=== PATIENT | female | born 1940 | race Caucasian/White ===

== ENCOUNTER 2017-11-12 15:01 | Inpatient (IN) | payer MEDICARE, BC ==
[2017-11-12] MEDS: BARIUM SULF 2% 450 ML BTL (BERRY SMOOTHIE) PO (15:00)
[2017-11-12 16:27] LABS: ADD MAN DIFF? NO
[2017-11-12 16:30] LABS: BASOPHIL # 0.1 10^3/ul (0.0-0.1); BASOPHILS % 0.4 % (0.0-2.0); EOSINOPHILS # 0.1 10^3/ul (0.0-0.5); EOSINOPHILS % 0.7 % (0.0-7.0); HEMATOCRIT 44.2 % (37.0-47.0); HEMOGLOBIN 14.5 g/dl (12.0-16.0); LYMPHOCYTES # 1.5 10^3/ul (0.8-2.9); LYMPHOCYTES % 12.5 % (15.0-51.0); MEAN CORPUSCULAR HEMOGLOBIN 28.3 pg (29.0-33.0); MEAN CORPUSCULAR HGB CONC 32.8 g/dl (32.0-37.0); MEAN CORPUSCULAR VOLUME 86.3 fl (82.0-101.0); MEAN PLATELET VOLUME 11.3 fl (7.4-10.4); MONOCYTE # 1.1 10^3/ul (0.3-0.9); MONOCYTES % 9.3 % (0.0-11.0); NEUTROPHIL # 9.3 10^3/ul (1.6-7.5); NEUTROPHILS % 76.7 % (39.0-77.0); PLATELET COUNT 344 10^3/UL (140-415); RED BLOOD COUNT 5.12 10^6/ul (4.20-5.40)
[2017-11-12 16:30] LABS: WHITE BLOOD COUNT 12.1 10^3/ul (4.8-10.8)
[2017-11-12 16:48] LABS: ALANINE AMINOTRANSFERASE 51 IU/L (13-69); ALBUMIN 4.7 g/dl (3.3-4.9); ALBUMIN/GLOBULIN RATIO 1.42; ALKALINE PHOSPHATASE 250 IU/L (42-121); AMYLASE 52 U/L (11-123); ANION GAP 20 (8-16); ASPARTATE AMINO TRANSFERASE 26 IU/L (15-46); BILIRUBIN,INDIRECT 0.3 mg/dl (0-1.1); BILIRUBIN,TOTAL 0.3 mg/dl (0.2-1.3); BLOOD UREA NITROGEN 22 mg/dl (7-20); CALCIUM 10.3 mg/dl (8.4-10.2); CARBON DIOXIDE 30 mmol/L (21-31); CHLORIDE 95 mmol/L (97-110); CREATININE 1.03 mg/dl (0.44-1.00); GLUCOSE 107 mg/dl (70-220); LIPASE 66 U/L (23-300); POTASSIUM 4.4 mmol/L (3.5-5.1); SODIUM 141 mmol/L (135-144)
[2017-11-12 16:50] LABS: INR 0.96; PARTIAL THROMBOPLASTIN TIME 36.7 Sec (25.0-35.0); PROTIME 12.9 Sec (11.9-14.9)
[2017-11-12 17:05] LABS: TROPONIN-I < 0.012 ng/ml (0.00-0.12)
[2017-11-12] MEDS ORDERED: oxyCODONE 5 MG TAB PO (17:30)
[2017-11-12] MEDS ORDERED: LORAZEPAM 2 MG INJ IV (17:30)
[2017-11-12] MEDS: METOCLOPRAMIDE 5 MG TAB PO (17:35)
[2017-11-12 17:43] LABS: ERYTHROCYTE SEDIMENTATION RATE 10 mm/Hr (0-30)
[2017-11-12] MEDS: LORAZEPAM 2 MG INJ IV (20:59)
[2017-11-12] MEDS: PANTOPRAZOLE 40 MG INJ IV (20:59)
[2017-11-12] MEDS: ONDANSETRON 4 MG INJ IV (21:00)
[2017-11-12] MEDS: DEXTROSE 5%-0.9% NACL 1,000 ML IV (21:16)
[2017-11-12] MEDS: PIPER-TAZO 3.375 GM IV (PMX) 100 ML IVPB (23:59)
[2017-11-13] MEDS: DEXTROSE 5%-0.9% NACL 1,000 ML IV ×3 (01:03→21:30)
[2017-11-13] MEDS: LORAZEPAM 2 MG INJ IV (03:26)
[2017-11-13] MEDS: ONDANSETRON 4 MG INJ IV ×3 (03:31→17:57)
[2017-11-13] MEDS: PIPER-TAZO 3.375 GM IV (PMX) 100 ML IVPB ×3 (05:34→17:57)
[2017-11-13] MEDS: PANTOPRAZOLE 40 MG INJ IV ×2 (05:34→17:56)
[2017-11-13] MEDS: LEVOTHYROXINE 100 MCG TAB PO (05:34)
[2017-11-13 05:46] LABS: ADD MAN DIFF? NO
[2017-11-13 05:47] LABS: BASOPHIL # 0.1 10^3/ul (0.0-0.1); BASOPHILS % 0.5 % (0.0-2.0); EOSINOPHILS # 0.3 10^3/ul (0.0-0.5); EOSINOPHILS % 2.7 % (0.0-7.0); LYMPHOCYTES # 1.5 10^3/ul (0.8-2.9); LYMPHOCYTES % 15.1 % (15.0-51.0); MEAN CORPUSCULAR HEMOGLOBIN 27.7 pg (29.0-33.0); MEAN CORPUSCULAR HGB CONC 32.6 g/dl (32.0-37.0); MEAN PLATELET VOLUME 10.6 fl (7.4-10.4); MONOCYTES % 10.2 % (0.0-11.0); NEUTROPHIL # 7.3 10^3/ul (1.6-7.5); NEUTROPHILS % 71.3 % (39.0-77.0); PLATELET COUNT 289 10^3/UL (140-415); RED BLOOD COUNT 5.06 10^6/ul (4.20-5.40); RED CELL DISTRIBUTION WIDTH 13.9 % (11.5-14.5)
[2017-11-13 05:47] LABS: WHITE BLOOD COUNT 10.2 10^3/ul (4.8-10.8)
[2017-11-13 06:20] LABS: ALANINE AMINOTRANSFERASE 47 IU/L (13-69); ALBUMIN 4.5 g/dl (3.3-4.9); ALKALINE PHOSPHATASE 228 IU/L (42-121); ANION GAP 17 (8-16); ASPARTATE AMINO TRANSFERASE 24 IU/L (15-46); BILIRUBIN,INDIRECT 0.3 mg/dl (0-1.1); BILIRUBIN,TOTAL 0.3 mg/dl (0.2-1.3); BLOOD UREA NITROGEN 18 mg/dl (7-20); CALCIUM 10.1 mg/dl (8.4-10.2); CARBON DIOXIDE 27 mmol/L (21-31); CHLORIDE 101 mmol/L (97-110); CREATININE 0.86 mg/dl (0.44-1.00); GLUCOSE 124 mg/dl (70-220); POTASSIUM 3.9 mmol/L (3.5-5.1); SODIUM 141 mmol/L (135-144); TOTAL PROTEIN 7.5 g/dl (6.1-8.1)
[2017-11-13 07:15] LABS: ADD UMIC NO; UR ASCORBIC ACID NEGATIVE (NEGATIVE); UR BILIRUBIN (Dip) NEGATIVE (NEGATIVE); UR BLOOD (Dip) NEGATIVE (NEGATIVE); UR CLARITY CLEAR (CLEAR); UR COLOR STRAW (YELLOW); UR GLUCOSE (Dip) NEGATIVE (NEGATIVE); UR KETONES (Dip) NEGATIVE (NEGATIVE); UR LEUKOCYTE ESTERASE (Dip) NEGATIVE Leu/ul (NEGATIVE); UR NITRITE (Dip) NEGATIVE (NEGATIVE); UR SPECIFIC GRAVITY (Dip) 1.004 (1.003-1.030); UR TOTAL PROTEIN (Dip) NEGATIVE (NEGATIVE); UR UROBILINOGEN (Dip) NEGATIVE (NEGATIVE)
[2017-11-13] MEDS ORDERED: ESCITALOPRAM 10 MG TAB PO (09:00)
[2017-11-13] MEDS: ESCITALOPRAM 10 MG TAB PO (09:01)
[2017-11-13] MEDS: METOPROLOL 50 MG TAB PO (09:02)
[2017-11-13] MEDS ORDERED: BARIUM SULF 2% 450 ML BTL (BERRY SMOOTHIE) PO (18:00)
[2017-11-13] MEDS: ENOXAPARIN 30 MG/0.3 ML SYG SC (18:53)
[2017-11-14] MEDS: PIPER-TAZO 3.375 GM IV (PMX) 100 ML IVPB ×4 (00:43→18:02)
[2017-11-14] MEDS: LORAZEPAM 2 MG INJ IV ×2 (01:59→21:29)
[2017-11-14] MEDS: DEXTROSE 5%-0.9% NACL 1,000 ML IV ×3 (03:11→18:03)
[2017-11-14 05:38] LABS: ALANINE AMINOTRANSFERASE 41 IU/L (13-69); ALBUMIN 3.5 g/dl (3.3-4.9); ALKALINE PHOSPHATASE 173 IU/L (42-121); ASPARTATE AMINO TRANSFERASE 21 IU/L (15-46); BILIRUBIN,INDIRECT 0.2 mg/dl (0-1.1); BILIRUBIN,TOTAL 0.2 mg/dl (0.2-1.3); TOTAL PROTEIN 6.3 g/dl (6.1-8.1)
[2017-11-14] MEDS: LEVOTHYROXINE 100 MCG TAB PO (05:56)
[2017-11-14] MEDS: PANTOPRAZOLE 40 MG INJ IV ×2 (05:56→18:03)
[2017-11-14] MEDS ORDERED: BARIUM SULF 2% 450 ML BTL (BERRY SMOOTHIE) PO (06:00)
[2017-11-14] MEDS: ENOXAPARIN 30 MG/0.3 ML SYG SC (09:03)
[2017-11-14] MEDS: ESCITALOPRAM 10 MG TAB PO (09:04)
[2017-11-14] MEDS: METOPROLOL 50 MG TAB PO (09:05)
[2017-11-14] MEDS: BARIUM SULFATE 0.1% 450 ML BTL (VOLUMEN) PO (11:12)
[2017-11-14] MEDS: SOD CHLORIDE 0.9% 100 ML (13:14)
[2017-11-14] MEDS: IODIXANOL LOCM 100 ML BTL (13:14)
[2017-11-14] MEDS: IODIXANOL LOCM 50 ML BTL (13:15)
[2017-11-15] MEDS: PIPER-TAZO 3.375 GM IV (PMX) 100 ML IVPB ×4 (00:57→18:12)
[2017-11-15] MEDS: DIPHENOXYLATE/ATROPINE TAB PO (04:10)
[2017-11-15] MEDS: LEVOTHYROXINE 100 MCG TAB PO (05:25)
[2017-11-15 05:39] LABS: ADD MAN DIFF? NO
[2017-11-15 05:43] LABS: WHITE BLOOD COUNT 7.9 10^3/ul (4.8-10.8)
[2017-11-15 05:43] LABS: BASOPHIL # 0.1 10^3/ul (0.0-0.1); BASOPHILS % 0.8 % (0.0-2.0); EOSINOPHILS # 0.7 10^3/ul (0.0-0.5); EOSINOPHILS % 8.7 % (0.0-7.0); HEMATOCRIT 36.1 % (37.0-47.0); HEMOGLOBIN 11.5 g/dl (12.0-16.0); LYMPHOCYTES # 1.2 10^3/ul (0.8-2.9); LYMPHOCYTES % 14.5 % (15.0-51.0); MEAN CORPUSCULAR HGB CONC 31.9 g/dl (32.0-37.0); MONOCYTE # 0.8 10^3/ul (0.3-0.9); MONOCYTES % 10.2 % (0.0-11.0); NEUTROPHIL # 5.2 10^3/ul (1.6-7.5); NEUTROPHILS % 65.3 % (39.0-77.0); PLATELET COUNT 247 10^3/UL (140-415)
[2017-11-15 06:03] LABS: ALANINE AMINOTRANSFERASE 31 IU/L (13-69); ALBUMIN 3.6 g/dl (3.3-4.9); ALKALINE PHOSPHATASE 139 IU/L (42-121); ANION GAP 15 (8-16); ASPARTATE AMINO TRANSFERASE 18 IU/L (15-46); BLOOD UREA NITROGEN 10 mg/dl (7-20); CARBON DIOXIDE 27 mmol/L (21-31); CHLORIDE 107 mmol/L (97-110); CREATININE 0.96 mg/dl (0.44-1.00); GLUCOSE 111 mg/dl (70-220); MAGNESIUM 1.8 mg/dl (1.7-2.5); PHOSPHORUS 3.3 mg/dl (2.5-4.9); POTASSIUM 4.3 mmol/L (3.5-5.1); SODIUM 145 mmol/L (135-144)
[2017-11-15 06:13] LABS: INR 1.15; PROTIME 14.9 Sec (11.9-14.9); PT RATIO 1.2
[2017-11-15 06:14] LABS: PARTIAL THROMBOPLASTIN TIME 33.9 Sec (25.0-35.0)
[2017-11-15] MEDS: DEXTROSE 5%-0.9% NACL 1,000 ML IV ×3 (06:15→21:16)
[2017-11-15] MEDS: PANTOPRAZOLE 40 MG INJ IV ×2 (06:17→18:12)
[2017-11-15] MEDS: ENOXAPARIN 30 MG/0.3 ML SYG SC (08:15)
[2017-11-15] MEDS: ESCITALOPRAM 10 MG TAB PO (09:00)
[2017-11-15] MEDS: METOPROLOL 50 MG TAB PO (09:23)
[2017-11-15] MEDS: ONDANSETRON 4 MG INJ IV (11:47)
[2017-11-15] MEDS: LORAZEPAM 2 MG INJ IV (11:58)
[2017-11-15] MEDS: NIFEdipine (XL) 60 MG TAB PO (12:02)
[2017-11-16] MEDS: PIPER-TAZO 3.375 GM IV (PMX) 100 ML IVPB ×5 (00:33→23:34)
[2017-11-16] MEDS: morphine 2 MG INJ IV (02:38)
[2017-11-16] MEDS: ONDANSETRON 4 MG INJ IV ×2 (02:42→09:04)
[2017-11-16] MEDS: LEVOTHYROXINE 100 MCG TAB PO (04:43)
[2017-11-16] MEDS: PANTOPRAZOLE 40 MG INJ IV ×2 (05:46→17:57)
[2017-11-16 06:18] LABS: ADD MAN DIFF? NO
[2017-11-16 06:25] LABS: WHITE BLOOD COUNT 11.3 10^3/ul (4.8-10.8)
[2017-11-16 06:25] LABS: BASOPHIL # 0.1 10^3/ul (0.0-0.1); BASOPHILS % 0.7 % (0.0-2.0); EOSINOPHILS # 0.8 10^3/ul (0.0-0.5); EOSINOPHILS % 7.3 % (0.0-7.0); HEMATOCRIT 39.9 % (37.0-47.0); HEMOGLOBIN 12.9 g/dl (12.0-16.0); LYMPHOCYTES # 2.1 10^3/ul (0.8-2.9); LYMPHOCYTES % 18.4 % (15.0-51.0); MEAN CORPUSCULAR HEMOGLOBIN 28.4 pg (29.0-33.0); MEAN CORPUSCULAR HGB CONC 32.3 g/dl (32.0-37.0); MEAN CORPUSCULAR VOLUME 87.7 fl (82.0-101.0); MEAN PLATELET VOLUME 10.8 fl (7.4-10.4); MONOCYTES % 8.8 % (0.0-11.0); NEUTROPHIL # 7.3 10^3/ul (1.6-7.5); NEUTROPHILS % 64.4 % (39.0-77.0); PLATELET COUNT 306 10^3/UL (140-415); RED BLOOD COUNT 4.55 10^6/ul (4.20-5.40); RED CELL DISTRIBUTION WIDTH 14.2 % (11.5-14.5)
[2017-11-16 06:48] LABS: ALANINE AMINOTRANSFERASE 30 IU/L (13-69); ALBUMIN 3.7 g/dl (3.3-4.9); ALBUMIN/GLOBULIN RATIO 1.12; ALKALINE PHOSPHATASE 159 IU/L (42-121); ANION GAP 17 (8-16); ASPARTATE AMINO TRANSFERASE 19 IU/L (15-46); BLOOD UREA NITROGEN 6 mg/dl (7-20); CALCIUM 9.3 mg/dl (8.4-10.2); CARBON DIOXIDE 27 mmol/L (21-31); CHLORIDE 105 mmol/L (97-110); CREATININE 0.92 mg/dl (0.44-1.00); GLUCOSE 108 mg/dl (70-220); POTASSIUM 3.7 mmol/L (3.5-5.1); SODIUM 145 mmol/L (135-144)
[2017-11-16 06:55] LABS: PREALBUMIN 14.9 mg/dl (17.6-36.0)
[2017-11-16] MEDS: DEXTROSE 5%-0.9% NACL 1,000 ML IV ×3 (08:53→22:47)
[2017-11-16] MEDS: ENOXAPARIN 30 MG/0.3 ML SYG SC (08:54)
[2017-11-16] MEDS: ESCITALOPRAM 10 MG TAB PO (08:55)
[2017-11-16] MEDS: METOPROLOL 50 MG TAB PO (08:55)
[2017-11-16] MEDS: NIFEdipine (XL) 60 MG TAB PO (08:55)
[2017-11-17] MEDS: PANTOPRAZOLE 40 MG INJ IV ×2 (05:26→17:31)
[2017-11-17] MEDS: PIPER-TAZO 3.375 GM IV (PMX) 100 ML IVPB ×3 (05:26→17:31)
[2017-11-17] MEDS: LEVOTHYROXINE 100 MCG TAB PO (05:26)
[2017-11-17] MEDS: LEVOFLOXACIN 500 MG TAB PO (05:26)
[2017-11-17 06:17] LABS: ADD MAN DIFF? NO
[2017-11-17 06:21] LABS: BASOPHIL # 0.1 10^3/ul (0.0-0.1); BASOPHILS % 0.7 % (0.0-2.0); EOSINOPHILS % 9.6 % (0.0-7.0); HEMATOCRIT 38.3 % (37.0-47.0); HEMOGLOBIN 12.3 g/dl (12.0-16.0); LYMPHOCYTES # 1.5 10^3/ul (0.8-2.9); LYMPHOCYTES % 14.7 % (15.0-51.0); MEAN CORPUSCULAR HEMOGLOBIN 28.6 pg (29.0-33.0); MEAN CORPUSCULAR HGB CONC 32.1 g/dl (32.0-37.0); MEAN CORPUSCULAR VOLUME 89.1 fl (82.0-101.0); MONOCYTE # 0.8 10^3/ul (0.3-0.9); MONOCYTES % 8.1 % (0.0-11.0); NEUTROPHIL # 6.9 10^3/ul (1.6-7.5); NEUTROPHILS % 66.5 % (39.0-77.0); PLATELET COUNT 281 10^3/UL (140-415); RED CELL DISTRIBUTION WIDTH 14.2 % (11.5-14.5)
[2017-11-17 06:21] LABS: WHITE BLOOD COUNT 10.4 10^3/ul (4.8-10.8)
[2017-11-17] MEDS: ONDANSETRON 4 MG INJ IV ×4 (06:25→22:43)
[2017-11-17 07:04] LABS: ALANINE AMINOTRANSFERASE 28 IU/L (13-69); ALBUMIN 3.4 g/dl (3.3-4.9); ALKALINE PHOSPHATASE 126 IU/L (42-121); AMYLASE 62 U/L (11-123); ANION GAP 16 (8-16); ASPARTATE AMINO TRANSFERASE 15 IU/L (15-46); BLOOD UREA NITROGEN 7 mg/dl (7-20); CALCIUM 8.8 mg/dl (8.4-10.2); CARBON DIOXIDE 27 mmol/L (21-31); CHLORIDE 106 mmol/L (97-110); GLUCOSE 100 mg/dl (70-220); LIPASE 69 U/L (23-300); POTASSIUM 3.6 mmol/L (3.5-5.1); SODIUM 145 mmol/L (135-144)
[2017-11-17] MEDS: ESCITALOPRAM 10 MG TAB PO (08:48)
[2017-11-17] MEDS: NIFEdipine (XL) 60 MG TAB PO (08:48)
[2017-11-17] MEDS: METOPROLOL 50 MG TAB PO (08:49)
[2017-11-17] MEDS: ENOXAPARIN 30 MG/0.3 ML SYG SC (08:50)
[2017-11-17] MEDS: DEXTROSE 5%-0.9% NACL 1,000 ML IV (15:05)
[2017-11-18] MEDS: DEXTROSE 5%-0.9% NACL 1,000 ML IV ×5 (00:22→23:59)
[2017-11-18] MEDS: PIPER-TAZO 3.375 GM IV (PMX) 100 ML IVPB ×5 (00:22→23:59)
[2017-11-18] MEDS ORDERED: VITAMIN A & D 5 GM OINT PACKET TOP (01:55)
[2017-11-18 06:14] LABS: ADD MAN DIFF? NO
[2017-11-18] MEDS: PANTOPRAZOLE 40 MG INJ IV ×2 (06:30→17:19)
[2017-11-18] MEDS: LEVOTHYROXINE 100 MCG TAB PO (06:30)
[2017-11-18] MEDS: LEVOFLOXACIN 500 MG TAB PO (06:30)
[2017-11-18 06:33] LABS: WHITE BLOOD COUNT 10.3 10^3/ul (4.8-10.8)
[2017-11-18 06:33] LABS: BASOPHIL # 0.1 10^3/ul (0.0-0.1); BASOPHILS % 0.5 % (0.0-2.0); EOSINOPHILS % 10.1 % (0.0-7.0); HEMATOCRIT 38.8 % (37.0-47.0); HEMOGLOBIN 12.4 g/dl (12.0-16.0); LYMPHOCYTES # 1.5 10^3/ul (0.8-2.9); LYMPHOCYTES % 14.4 % (15.0-51.0); MEAN CORPUSCULAR HEMOGLOBIN 28.6 pg (29.0-33.0); MEAN CORPUSCULAR VOLUME 89.6 fl (82.0-101.0); MEAN PLATELET VOLUME 10.8 fl (7.4-10.4); MONOCYTE # 0.8 10^3/ul (0.3-0.9); MONOCYTES % 7.7 % (0.0-11.0); NEUTROPHIL # 6.9 10^3/ul (1.6-7.5); PLATELET COUNT 251 10^3/UL (140-415); RED BLOOD COUNT 4.33 10^6/ul (4.20-5.40); RED CELL DISTRIBUTION WIDTH 14.3 % (11.5-14.5)
[2017-11-18 06:46] LABS: ANION GAP 15 (8-16); BLOOD UREA NITROGEN 8 mg/dl (7-20); CALCIUM 9.1 mg/dl (8.4-10.2); CARBON DIOXIDE 29 mmol/L (21-31); CHLORIDE 105 mmol/L (97-110); CREATININE 0.93 mg/dl (0.44-1.00); GLUCOSE 92 mg/dl (70-220); POTASSIUM 3.6 mmol/L (3.5-5.1); SODIUM 145 mmol/L (135-144)
[2017-11-18] MEDS: ONDANSETRON 4 MG INJ IV ×3 (07:57→21:03)
[2017-11-18] MEDS: ESCITALOPRAM 10 MG TAB PO (09:10)
[2017-11-18] MEDS: NIFEdipine (XL) 60 MG TAB PO (09:10)
[2017-11-18] MEDS: METOPROLOL 50 MG TAB PO (09:11)
[2017-11-18] MEDS: ENOXAPARIN 30 MG/0.3 ML SYG SC (09:14)
[2017-11-19] MEDS: PIPER-TAZO 3.375 GM IV (PMX) 100 ML IVPB (05:22)
[2017-11-19] MEDS: LEVOTHYROXINE 100 MCG TAB PO (05:23)
[2017-11-19] MEDS: PANTOPRAZOLE 40 MG INJ IV ×2 (05:23→17:56)
[2017-11-19] MEDS: LEVOFLOXACIN 500 MG TAB PO (05:23)
[2017-11-19 06:09] LABS: ANION GAP 13 (8-16); BLOOD UREA NITROGEN 7 mg/dl (7-20); CALCIUM 9.2 mg/dl (8.4-10.2); CARBON DIOXIDE 31 mmol/L (21-31); CHLORIDE 105 mmol/L (97-110); CREATININE 0.89 mg/dl (0.44-1.00); GLUCOSE 92 mg/dl (70-220); SODIUM 145 mmol/L (135-144)
[2017-11-19] MEDS: DEXTROSE 5%-0.9% NACL 1,000 ML IV ×2 (07:30→17:33)
[2017-11-19] MEDS: ONDANSETRON 4 MG INJ IV ×2 (07:48→17:56)
[2017-11-19] MEDS: NIFEdipine (XL) 60 MG TAB PO (08:51)
[2017-11-19] MEDS: ENOXAPARIN 30 MG/0.3 ML SYG SC (08:51)
[2017-11-19] MEDS: ESCITALOPRAM 10 MG TAB PO (08:51)
[2017-11-19] MEDS: METOPROLOL 50 MG TAB PO (08:52)
[2017-11-19] MEDS: LORAZEPAM 2 MG INJ IV ×2 (20:48)
[2017-11-20] MEDS: DEXTROSE 5%-0.9% NACL 1,000 ML IV ×2 (03:17→13:30)
[2017-11-20] MEDS: LORAZEPAM 2 MG INJ IV ×2 (03:22→11:11)
[2017-11-20] MEDS: LEVOTHYROXINE 100 MCG TAB PO (06:42)
[2017-11-20] MEDS: PANTOPRAZOLE 40 MG INJ IV (06:42)
[2017-11-20] MEDS: LEVOFLOXACIN 500 MG TAB PO (06:42)
[2017-11-20] MEDS: ESCITALOPRAM 10 MG TAB PO (08:33)
[2017-11-20] MEDS: NIFEdipine (XL) 60 MG TAB PO (08:34)
[2017-11-20] MEDS: ENOXAPARIN 30 MG/0.3 ML SYG SC (08:35)
[2017-11-20] MEDS: METOPROLOL 50 MG TAB PO (08:35)
[2017-11-20] MEDS: ONDANSETRON 4 MG INJ IV (08:35)
[2017-11-20] MEDS: morphine 2 MG INJ IV (14:18)
== END 2017-11-20 15:47 | disposition home or self-care (01) | DRG 445 ==
LOC: PP2 15:01
PROC: CF1C1ZZ Planar Nuclear Medicine Imaging of Hepatobiliary System, All using Technetium 99m (Tc-99m) (ICD-10-PCS; principal; 2017-11-13)
DX: K80.01 Calculus of gallbladder with acute cholecystitis with obstruction (principal); K82.1 Hydrops of gallbladder; Z68.1 Body mass index [BMI] 19.9 or less, adult; J21.9 Acute bronchiolitis, unspecified; N39.0 Urinary tract infection, site not specified; E44.0 Moderate protein-calorie malnutrition; E86.0 Dehydration; F41.9 Anxiety disorder, unspecified; F32.9 Major depressive disorder, single episode, unspecified; I10 Essential (primary) hypertension; E03.9 Hypothyroidism, unspecified; I73.00 Raynaud's syndrome without gangrene; M34.1 CR(E)ST syndrome; Z90.710 Acquired absence of both cervix and uterus; I70.0 Atherosclerosis of aorta; K76.89 Other specified diseases of liver; M51.36 Other intervertebral disc degeneration, lumbar region; I78.1 Nevus, non-neoplastic; K21.9 Gastro-esophageal reflux disease without esophagitis; D63.8 Anemia in other chronic diseases classified elsewhere; G47.33 Obstructive sleep apnea (adult) (pediatric); K58.2 Mixed irritable bowel syndrome; R63.4 Abnormal weight loss; M43.8X4 Other specified deforming dorsopathies, thoracic region; K57.30 Diverticulosis of large intestine without perforation or abscess without bleeding
CPT/HCPCS: 71046; 74176; 74178; 78226; 80048; 80053; 80076; 81003; 82150; 83690; 83735; 84100; 84134; 84484; 85025; 85610; 85651; 85730; 87040; 87075; 87086; 93005; 99217; G0378